=== PATIENT | female | born 1955 | race Caucasian/White ===

== ENCOUNTER 2017-01-28 10:52 | Emergency (ER) | payer MEDICAID ==
[~2017-01-28] VITALS: Ht 165.1 cm; Wt 77.3 kg
[2017-01-28] MEDS ORDERED: SODIUM CHLORIDE 0.9% 1,000ML IVBOLUS ONE (12:00)
[2017-01-28] MEDS ORDERED: ONDANSETRON 2MG/ML, 2ML IVPush ONE (12:00)
[2017-01-28] MEDS ORDERED: SODIUM CHLORIDE FLUSH 10ML SYR IVF ONE (12:00)
[2017-01-28] MEDS ORDERED: ONDANSETRON 2MG/ML, 2ML ONE (12:02)
[2017-01-28] MEDS ORDERED: HYDROmorphone 1 MG/ML, 1ML ONE ×2 (12:02→14:12)
[2017-01-28] MEDS: HYDROmorphone 1 MG/ML, 1ML IVPush PRN ×2 (12:08→14:26)
[2017-01-28] MEDS ORDERED: ESOM20CA PO (12:21)
[2017-01-28] MEDS ORDERED: ASPI-496 PO (12:21)
[2017-01-28 12:23] LABS: HEMOGLOBIN 15.5 g/dL (11.7-16.4)
[2017-01-28] MEDS ORDERED: METF500T27 PO (12:26)
[2017-01-28] MEDS ORDERED: NAPR220C PO (12:26)
[2017-01-28] MEDS ORDERED: LEVO50TA PO (12:26)
[2017-01-28] MEDS ORDERED: LINA5TAB PO (12:26)
[2017-01-28] MEDS ORDERED: HYDR25TA11 PO (12:26)
[2017-01-28] MEDS ORDERED: INSU100V8 SQ (12:26)
[2017-01-28] MEDS ORDERED: LISI5TAB7 PO (12:26)
[2017-01-28 12:31] LABS: ASPARTATE AMINO TRANSFERASE 23 U/L (15-37); BLOOD UREA NITROGEN 8 mg/dL (7-18)
[2017-01-28 16:25] VITALS: BP 140/66
[2017-01-28] MEDS ORDERED: OMNIPAQUE 350 MG/ML, 100ML BOTTLE ONE (18:56)
== END 2017-01-28 16:28 | disposition home or self-care (01) ==
LOC: ED 12:18
DX: R10.13 Epigastric pain (principal); R11.2 Nausea with vomiting, unspecified; E11.9 Type 2 diabetes mellitus without complications; F17.200 Nicotine dependence, unspecified, uncomplicated
CPT/HCPCS: 36415; 74177; 76700; 80053; 83690; 85025; 93005; 96361; 96374; 96375; 96376; 99285; J1170; J2405; J7030; Q9967